=== PATIENT | male | born 1955 | race Caucasian/White ===

== ENCOUNTER → 2017-01-21 | Day surgery (SDC) | payer BC ==
[2017-01-16 09:25] VITALS: BMI 42.0
[~2017-01-21] VITALS: Ht 177.8 cm; Wt 131.8 kg
[~2017-01-21] MED LIST: ALLO300T2 PO; AMLO-114 PO; ASPEC325 PO; CARV25TA2 PO; CHOL20007 PO; FERR1TAB23 PO; FLUT230A INH; FURO80TA63 PO; LIDOCAINE HCL 2% 2 ML VIAL (20MG/ML) ONE; LNX25 PO; LOSA1TAB38 PO; MAGN400T5 PO; MIDAZOLAM HCL 1 MG/ML 2ML VIAL ONE; MONT1TAB3 PO; PROPOFOL IV EMULSION 10 MG/ML 20 ML VIAL IV ONE; VNTHFA/IN INH
[2017-01-21 09:45] VITALS: Ht 177.8 cm; Wt 131.8 kg
--- NOTE | 2017-01-21 09:50 | Endo History and Physical ---
History & Physical Date of Service: Jan 21, 2017. Chief Complaint: Follow-up for colon polyps Referring Physician: History of Present Illness The patient presents for routine surveillance colonoscopy. He has a history of colonic polyps. There is no family history of colorectal cancer. The patient denies having any symptoms at this time. Past Surgical History Hx Cardiac Surgery: No Hx Internal Defibrillator: No Hx Pacemaker: No Hx Abdominal Surgery: No Hx of Implantable Prosthesis: No Hx Post-Op Nausea and Vomiting: No Hx Cancer Surgery: No Hx Thoracic Surgery: No Hx Orthopedic: No Hx Urinary Tract Surgery: No Family History None Social History Smoking Status: Current Every Day Smoker Hx Substance Use: No Hx Alcohol Use: Yes (OCCASIONALLY/NONE IN THE LAST 5 WEEKS) Allergies Coded Allergies: BEE STING (Verified Allergy, Unknown, SWELLING, 01/16/17) NO KNOWN DRUG ALLERGIES (Verified Allergy, Unknown, ., 01/16/17) Current Medications Reported Home Medications Medications Dose Route/Sig Max Daily Dose Days Date Category Vitamin D3 (Cholecalciferol) 2,000 Unit Tab 1 Tab PO QAM 90 01/16/17 Reported Iron (Ferrous Sulfate) 325 Mg Tab 1 Tab PO QAM 01/16/17 Reported Aspirin 325 Mg Ectab 1 Tab PO QAM 01/16/17 Reported Mag-Ox (Magnesium Oxide) 400 Mg Tab 400 Mg PO QPM 01/16/17 Reported Ventolin Hfa (Albuterol) 200 Puffs/77786 Mcg Aers 2-4 Puffs INH Q6H PRN 01/16/17 Reported Advair Hfa 230/21 Mcg (Fluticasone-Salmeterol 230/21 Mcg) 1 Aer Aer 2 Puffs INH BID 01/16/17 Reported Zyloprim (Allopurinol) 300 Mg Tab 300 Mg PO QPM 01/16/17 Reported Digoxin 0.25 Mg Tab 1 Tab PO QAM 01/16/17 Reported Coreg (Carvedilol) 25 Mg Tab 25 Mg PO BID 01/16/17 Reported Cozaar (Losartan Potassium) 100 Mg Tab 100 Mg PO QPM 01/16/17 Reported Lasix (Furosemide) 80 Mg Tab 80 Mg PO QAM 01/16/17 Reported Singulair (Montelukast Sodium) 10 Mg Tab 10 Mg PO QPM 01/16/17 Reported Norvasc (Amlodipine Besylate) 10 Mg Tab 10 Mg PO QPM 01/16/17 Reported Vital Signs Weight (Kilograms): 131.82 Height (Feet): 5 Height (Inches): 10 Physical Exam General Appearance: no apparent distress Respiratory/Chest: Auscultation: breath sounds normal Cardiovascular: Heart Auscultation: RRR Abdomen: Inspection & Palpation: soft Assessment and Plan Patient undergo surveillance colonoscopy today. We have discussed the risks to include bleeding, infection, perforation and was colon polyps.
[2017-01-21 10:00] VITALS: TEMP 36.6
--- NOTE | 2017-01-21 10:25 | GI REPORT ---
Procedure Date: 01/21/2017 9:58 AM Procedure: Colonoscopy Indications: High risk colon cancer surveillance: Personal history of colonic polyps Medicines: Monitored Anesthesia Care Complications: No immediate complications. Estimated blood loss: Minimal. Estimated Blood Loss: Estimated blood loss was minimal. Procedure: Pre-Anesthesia Assessment: - Prior to the procedure, a History and Physical was performed, and patient medications, allergies and sensitivities were reviewed. The patient's tolerance of previous anesthesia was reviewed. - The risks and benefits of the procedure and the sedation options and risks were discussed with the patient. All questions were answered and informed consent was obtained. - Patient identification and proposed procedure were verified prior to the procedure by the physician, the nurse and the inpatient nursing aide. The procedure was verified in the procedure room. - Pre-procedure physical examination revealed no contraindications to sedation. - ASA Grade Assessment: III - A patient with severe systemic disease. - After reviewing the risks and benefits, the patient was deemed in satisfactory condition to undergo the procedure. - The anesthesia plan was to use monitored anesthesia care (MAC). - Immediately prior to administration of medications, the patient was re-assessed for adequacy to receive sedatives. - The heart rate, respiratory rate, oxygen saturations, blood pressure, adequacy of pulmonary ventilation, and response to care were monitored throughout the procedure. - The physical status of the patient was re-assessed after the procedure. After I obtained informed consent, the scope was passed under direct vision. Throughout the procedure, the patient's blood pressure, pulse, and oxygen saturations were monitored continuously. The Scope was introduced through the anus and advanced to the terminal ileum. The colonoscopy was performed without difficulty. The patient tolerated the procedure well. The quality of the bowel preparation was good. Findings: The digital rectal exam findings include non-thrombosed external hemorrhoids. Pertinent negatives include normal sphincter tone. The terminal ileum appeared normal. A 5 mm polyp was found in the transverse colon. The polyp was sessile. The polyp was removed with a cold snare. Resection and retrieval were complete. Estimated blood loss was minimal. A 7 mm polyp was found in the descending colon. The polyp was sessile. The polyp was removed with a cold snare. Resection and retrieval were complete. To prevent bleeding after the polypectomy, one hemostatic clip was successfully placed (MR conditional). There was no bleeding at the end of the procedure. A 6 mm polyp was found in the descending colon. The polyp was sessile. The polyp was removed with a cold snare. Resection and retrieval were complete. Estimated blood loss was minimal. A 3 mm polyp was found in the rectum. The polyp was sessile. The polyp was removed with a cold snare. Resection and retrieval were complete. Estimated blood loss was minimal. Internal hemorrhoids were found during retroflexion. The hemorrhoids were moderate. Multiple small and large-mouthed diverticula were found in the sigmoid colon and in the descending colon. The exam was otherwise without abnormality. Impression: - Non-thrombosed external hemorrhoids found on digital rectal exam. - The examined portion of the ileum was normal. - One 5 mm polyp in the transverse colon, removed with a cold snare. Resected and retrieved. - One 7 mm polyp in the descending colon, removed with a cold snare. Resected and retrieved. Clip (MR conditional) was placed. - One 6 mm polyp in the descending colon, removed with a cold snare. Resected and retrieved. - One 3 mm polyp in the rectum, removed with a cold snare. Resected and retrieved. - Internal hemorrhoids. - Mild diverticulosis in the sigmoid colon and in the descending colon. - The examination was otherwise normal. Recommendation: - Discharge patient to home (ambulatory). - Advance diet as tolerated today. - Await pathology results. - Repeat colonoscopy in 3 - 5 years for surveillance based on pathology results. - Return to GI office PRN. Bebeto Howe D.O. Bebeto Howe, 01/21/2017 10:24:17 AM This report has been signed electronically. Note Initiated On: 01/21/2017 9:58 AM I attest to the content of the Intraoperative Record and orders documented therein, exceptions below
--- NOTE | 2017-01-21 10:25 | Discharge Instructions ---
Endoscopy Patient Instructions Date / Procedure(s) Performed Jan 21, 2017. Colonoscopy Allergy Information Coded Allergies: BEE STING (Verified Allergy, Unknown, SWELLING, 01/16/17) NO KNOWN DRUG ALLERGIES (Verified Allergy, Unknown, ., 01/16/17) Discharge Date / Findings Jan 21, 2017. Hemorrhoids Diverticulosis of the left colon 4 colonic polyps Medication Instructions Restart Stopped Medication(s): Reported Home Medications Medications Dose Route/Sig Max Daily Dose Days Date Category Vitamin D3 (Cholecalciferol) 2,000 Unit Tab 1 Tab PO QAM 90 01/16/17 Reported Iron (Ferrous Sulfate) 325 Mg Tab 1 Tab PO QAM 01/16/17 Reported Aspirin 325 Mg Ectab 1 Tab PO QAM 01/16/17 Reported Mag-Ox (Magnesium Oxide) 400 Mg Tab 400 Mg PO QPM 01/16/17 Reported Ventolin Hfa (Albuterol) 200 Puffs/64557 Mcg Aers 2-4 Puffs INH Q6H PRN 01/16/17 Reported Advair Hfa 230/21 Mcg (Fluticasone-Salmeterol 230/21 Mcg) 1 Aer Aer 2 Puffs INH BID 01/16/17 Reported Zyloprim (Allopurinol) 300 Mg Tab 300 Mg PO QPM 01/16/17 Reported Digoxin 0.25 Mg Tab 1 Tab PO QAM 01/16/17 Reported Coreg (Carvedilol) 25 Mg Tab 25 Mg PO BID 01/16/17 Reported Cozaar (Losartan Potassium) 100 Mg Tab 100 Mg PO QPM 01/16/17 Reported Lasix (Furosemide) 80 Mg Tab 80 Mg PO QAM 01/16/17 Reported Singulair (Montelukast Sodium) 10 Mg Tab 10 Mg PO QPM 01/16/17 Reported Norvasc (Amlodipine Besylate) 10 Mg Tab 10 Mg PO QPM 01/16/17 Reported Provider Instructions Activity Restrictions - No exercising or heavy lifting for 24 hours. - Do not drink alcohol the day of the procedure. - Do not drive a car or operate machinery until the day after the procedure. - Do not make any important decisions or sign important papers in 24 hours after the procedure. Following Day: - Return to full activity which may include returning to work/school. Diet Start your diet with liquids and light foods (jello, soup, juice, toast). Then eat your usual diet if not nauseated. Treatment For Common After Affects For mild abdominal pain, bloating, or excessive gas: - Rest - Eat lightly - Lie on right side Follow-Up Information Follow-up with Dr Curry as scheduled Repeat colonoscopy in 3-5 years Anesthesia Information What You Should Know You have had a procedure that required some medicine to reduce anxiety and discomfort. This treatment is called moderate sedation. After receiving the treatment, you may be sleepy, but you will be able to breathe on your own. The effects of the treatment may last for several hours. Follow these instructions along with Activity/Diet recommendations noted above: * Do NOT do anything where dizziness or clumsiness would be dangerous. * Rest quietly at home today, then you can be up and about tomorrow. * Have a responsible person stay with you the rest of today. * You may have had an I.V. today. If so, you may take the dressing off later today. Recommendations Call your doctor if: * Trouble breathing * Continuous vomiting for more than 24 hours * Temperature above 101 degrees * Severe abdominal pain or bloating * Pain not relieved by pain medicine ordered * There is increased drainage or redness from any incision * A large amount of rectal bleeding greater than 2-3 tablespoons. (If you had a polyp/s removed or have hemorrhoids, a small amount of blood - from the rectum is to be expected.) * You have any unanswered questions or concerns. IN THE EVENT OF A SERIOUS EMERGENCY, GO TO THE NEAREST EMERGENCY ROOM Your discharge instructions were prepared by provider Bebeto Howe. Patient Instructions Signature Page Naomy Beyer Patient (or Guardian) Signature/Date: I have read and understand the instructions given to me by my caregivers. Caregiver/RN/Doctor Signature/Date: The above-named patient and/or guardian has received patient instructions on this date. + Original Patient Signature Page (only) stays with chart. Please make copy for patient.
[2017-01-21 10:57] VITALS: BP 115/79; PULSE 80; O2SAT 94
--- NOTE | 2017-01-21 11:21 | Anesthesiology Progress Note ---
Anesthesia Post Op Note Date & Time Jan 21, 2017 at 11:21 Vital Signs Pain Intensity: 4 Vital Signs Past 12 Hours Date Time Temp Pulse Resp B/P (MAP) Pulse Ox O2 Delivery O2 Flow Rate FiO2 01/21/17 10:57 80 20 115/79 (91) 94 Room Air 01/21/17 10:42 86 20 113/81 (92) 95 Room Air 01/21/17 10:35 84 16 92/51 (65) 94 Room Air 01/21/17 10:27 87 18 110/72 (85) 95 Room Air 01/21/17 10:00 36.6 80 18 152/100 (117) 98 Room Air Notes Mental Status: alert / awake / arousable, participated in evaluation Pt Amnestic to Procedure: Yes Nausea / Vomiting: adequately controlled Pain: adequately controlled Airway Patency, RR, SpO2: stable & adequate BP & HR: stable & adequate Hydration State: stable & adequate Anesthetic Complications: no major complications apparent
== END | disposition home or self-care (01) ==
LOC: C.GI 09:04
PROVIDERS: ATTEND Internal Medicine Gastroenterology
DX: Z12.11 Encounter for screening for malignant neoplasm of colon (principal); D12.4 Benign neoplasm of descending colon; D12.3 Benign neoplasm of transverse colon; K62.1 Rectal polyp; K57.30 Diverticulosis of large intestine without perforation or abscess without bleeding; K64.4 Residual hemorrhoidal skin tags; K64.8 Other hemorrhoids; Z86.010 Personal history of colon polyps; F17.200 Nicotine dependence, unspecified, uncomplicated; Z79.82 Long term (current) use of aspirin; Z79.899 Other long term (current) drug therapy